=== PATIENT | female | born 1980 | race Two or more races ===

== ENCOUNTER 2025-03-28 08:49 | Day surgery (SDC) | payer MEDICAID ==
[2025-03-25 15:20] LABS: Urine Amorphous Crystal FEW /hpf (None Seen); Urine Bacteria FEW /hpf (None Seen); Urine Blood Negative /uL (Negative); Urine Budding Yeast MANY /hpf (None Seen); Urine Clarity Ex.Turbid (Clear); Urine Color Colorless (Yellow); Urine Protein, UAD Negative (Negative); Urine Specific Gravity 1.017 (1.001-1.035); Urine Squamous Epithelial Cell FEW /hpf (<5); Urine Urobilinogen Normal (Negative)
[2025-03-25 15:25] LABS: Basophils # (auto) 0.1 10 ^3/uL (0-0.2); Basophils % (auto) 0.6 % (0.0-2.0); Eosinophils # (auto) 0.2 10 ^3/uL (0-0.8); Eosinophils % (auto) 2.1 % (0.0-7.0); Hematocrit 39.7 % (36.0-46.0); Hemoglobin 13.2 g/dL (12.2-16.2); Lymphocytes # (auto) 2.7 10 ^3/uL (0.4-5.4); Lymphocytes % (auto) 27.7 % (10.0-50.0); Mean Corpuscular Hemoglobin 26.9 pg (28.0-32.0); Mean Corpuscular Hgb Conc. 33.2 g/dL (32.0-36.0); Monocytes # (auto) 0.7 10 ^3/uL (0-1.3); Neutrophils % (auto) 62.6 % (37.0-80.0); Nucleated Red Blood Cells % 0.1 %; Platelet Count (auto) 379 10^3/uL (140-450); Red Blood Cells 4.89 10^6/uL (4.0-5.20); Red Cell Distribution Width 14.7 % (11.8-14.3); White Blood Cell 9.6 10^3/uL (4.4-10.8)
[2025-03-25 15:28] LABS: Urine WBC 1 /HPF (0-5)
[2025-03-25 15:32] LABS: INR 0.97 (0.9-1.15); Partial Thromboplastin Time 26.8 SEC (24.5-34.5); Prothrombin Time 10.3 sec (9.3-11.8)
[2025-03-25 15:41] LABS: Alanine Aminotransferase 18 U/L (7-40); Alkaline Phosphatase 93 U/L (46-116); Anion Gap 9 (5-15); Aspartate Aminotransferase 16 U/L (<34); BUN/Creatinine Ratio 13.1 (10.0-20.0); Calcium 9.5 mg/dL (8.7-10.4); Carbon Dioxide 25 mmol/L (20-31); Glucose 91 mg/dL (74-106); Potassium 3.7 mmol/L (3.5-5.1); Sodium 142 mmol/L (136-145); Total Protein 6.9 g/dL (5.7-8.2)
[2025-03-25 15:44] LABS: Blood Urea Nitrogen 8 mg/dL (9-23); Chloride 108 mmol/L (98-107)
[2025-03-25 15:45] LABS: Bilirubin, Total 0.2 mg/dL (0.2-1.0)
[~2025-03-28] VITALS: Ht 157.5 cm; Wt 105.2 kg
[~2025-03-28 08:49] MED LIST: BACL20TA PO; FAMO20TA10 PO; FURO1TAB31 PO; NAPR-957 PO; OME20GT PO; POTA-36 PO; SEMA2INJ3 SC; SUMA50TA2 PO
--- NOTE | 2025-03-28 10:16 | DVHHP2 ---
GI H&P Pre-Op Assessment Date: 03/28/25 Chief complaint: Heartburn, dysphagia, epigastric pain HPI: per clinic note Past medical history: per clinic note Past surgical history: per clinic note Family history: per clinic note Physical exam: General: NAD, AAOX3 HEENT: PERRL, no scleral icterus, normal hearing, gums without lesions or bleeding, oropharynx clear without erythema or exudate. Neck: Supple without enlargement of the thyroid, or lymphadenopathy. Chest: Normal size and shape, no tenderness, lung christensen clear to auscultation and percussion, nonlabored breathing. Heart: RRR, no murmur Abdomen: non-distended, no tenderness to palpation, +BS, no hepatosplenomegaly Extremities: no edema Neurological: CN II-XII intact, sensation intact in all extremities, 5+ strength in all extremities Skin: No rashes, No jaundice Assessment: - Heartburn, dysphagia, epigastric pain Plan: - EGD - Risks (bleeding, infection, perforation, reaction to sedation medications and cardiopulmonary arrest) and benefit of the procedure were explained to patient. Patient agrees to undergo the procedure. PUNEET TAVERAS MD Mar 28, 2025 10:16
[2025-03-28] MEDS ORDERED: fentaNYL CITRATE 100 MCG/2 ML VL ONE (10:44)
[2025-03-28] MEDS ORDERED: PROPOFOL 10 MG/ML 20 ML IV ONE (10:44)
[2025-03-28 11:19] VITALS: PULSE 82; RESP 17; TEMP 98.4; O2SAT 93
--- NOTE | 2025-03-28 11:19 | DVHOP2 ---
Operative Report DATE OF OPERATION: 03/28/25 PROCEDURE: Upper Endoscopy. PREOPERATIVE INDICATION: The patient is a 44 -year-old female undergoing endoscopy for heartburn, dysphagia and epigastric pain. POSTOPERATIVE DIAGNOSES: 1. Slight gastritis 2. The esophagus was dilated with 50 [place] bougie PROCEDURE PERFORMED BY: Itz Vargas SCOPE: Olympus videoendoscope. ASA CLASS: 3 PREOPERATIVE MEDICATIONS: MAC with Dr Sun PROCEDURE IN DETAIL: After obtaining an informed consent, the patient was placed on left lateral decubitus position. The patient was then sedated with the above medications. A bite block was placed between her teeth. The endoscope was then passed through the oropharynx, into the esophagus, and through the stomach and pylorus up to the second and third part of the duodenum. The duodenum was normal in appearance. There was slight gastritis. Gastric biopsy obtained using biopsy forceps. The GE junction was normal appearance at 34 cm. The esophagus was normal in appearance. The esophagus was dilated with 50 Swedish bougie. The endoscope was then withdrawn. The patient tolerated the procedure well without difficulty. COMPLICATIONS : None SPECIMENS: Gastric biopsies DISPOSITION: D/C to home PLAN: 1. Await for biopsy result 2. Continue with omeprazole and famotidine ITZ VARGAS MD Mar 28, 2025 11:19
--- NOTE | 2025-03-28 11:20 | DVHDS2 ---
Physician Discharge Progress N Final Diagnosis: Gastritis Operations or Procedures: Operations or Procedures EGD with biopsy and dilation Condition on Discharge: Good Disposition: Home Discharge Instructions: Diet: Regular Activity: No Restrictions, As Tolerated Medications: Resume with previous home medications Follow Up Care: Discharge Statement: "Patient was advised to return to the ER or call 911 if any headaches, dizziness, shortness of breath, chest pain, abdominal pain, bleeding, fevers, or worsening of medical condition. Patient was counseled about treatment plan, medications, possible side effects, patientverbalized understanding. All questions were answered to the best of my ability. This discharge took greater then 30 minutes in planning, reviewing document ation, counseling the patient, and discussing with other team members." PUNEET TAVERAS MD Mar 28, 2025 11:20
[2025-03-28 11:46] VITALS: BP 96/52; PULSE 75; RESP 17; O2SAT 94
== END 2025-03-28 11:57 | disposition home or self-care (01) ==
LOC: GI 08:49
PROVIDERS: ATTEND Internal Medicine Gastroenterology
DX: R12 Heartburn (principal); K29.50 Unspecified chronic gastritis without bleeding; R13.10 Dysphagia, unspecified; E11.9 Type 2 diabetes mellitus without complications; G43.909 Migraine, unspecified, not intractable, without status migrainosus; E66.9 Obesity, unspecified; Z68.41 Body mass index [BMI] 40.0-44.9, adult; Z79.899 Other long term (current) drug therapy; Z90.49 Acquired absence of other specified parts of digestive tract; Z98.891 History of uterine scar from previous surgery; Z98.890 Other specified postprocedural states
CPT/HCPCS: 36415; 43239; 43450; 80053; 81001; 81025; 82962; 85025; 85610; 85730; 88305; 88311; J2704; J3010; J7030